=== PATIENT | male | born 1975 | race Caucasian/White ===

== ENCOUNTER 2018-07-21 05:50 | Day surgery (SDC) | payer OTHER ==
[2018-07-20 11:19] LABS: HEMATOCRIT 45.2 % (42.0-54.0); HEMOGLOBIN 16.1 g/dL (13.5-17.5); MCH 31.9 pg (26.0-34.0); MCHC 35.6 g/dL (31.0-37.0); MCV 89.5 fL (80.0-100.0); MEAN PLATELET VOLUME 10.8 fL (7.4-10.4); RBC 5.05 10x6/uL (4.20-6.10); RDW 12.7 % (11.5-14.5); WBC 6.8 10x3/uL (4.8-10.8)
[~2018-07-21] VITALS: Ht 175.3 cm; Wt 80.3 kg
[~2018-07-21 05:50] MED LIST: LISINOPRIL5 MG PO
[2018-07-21 06:42] VITALS: BP 121/80; Ht 175.3 cm; Wt 80.3 kg
[2018-07-21] MEDS ORDERED: HYDROCODON-ACE1 EAC7 PO (09:31)
[2018-07-21] MEDS ORDERED: FLOMAX0.4 MG PO (09:31)
[2018-07-21] MEDS ORDERED: FUROSEMIDE20 MG PO (09:31)
--- NOTE | 2018-07-21 10:28 | NUR ---
1020-RECD FROM PACU. ALERT. IV PATENT. STERISTRIPS TO ABD DRY AND INTACT. DENIES PAIN. FULL LIQUIDS SERVED.
--- NOTE | 2018-07-21 11:20 | NUR ---
TOLERATING FL TRAY. DENIES NEEDS. FAMILY AT BEDSIDE. RELATES STARTING TO FEEL THE URGE TO URINATE STATING "IT'S GETTING CLOSE."
--- NOTE | 2018-07-21 12:30 | NUR ---
TOLERATED DIET. STILL HAS NOT VOIDED, IV FLD INFUSING VIA LEFT PIV. FAMILY AT BEDSIDE.
--- NOTE | 2018-07-21 13:35 | NUR ---
AMBULATED TO BATHROOM AND VOIDED WITHOUT DIFFICULTY. IV DC'D WITH CATHETER INTACT, WRITTEN AND VERBAL DC INST. GIVEN TO PT. VERBALIZED UNDERSTANDING.
--- NOTE | 2018-07-21 13:50 | NUR ---
DC'D HOME WITH FAMILY VIA PRIVATE VEHICLE, TAKEN TO VEHICLE VIA , STABLE AT TIME OF DC.
== END 2018-07-21 13:50 | disposition home or self-care (01) ==
LOC: D.OPS 05:50 → D.PAN 08:00 → D.OPS 08:15
PROVIDERS: Anesthesiology; ATTEND Surgery
DX: K40.20 Bilateral inguinal hernia, without obstruction or gangrene, not specified as recurrent (principal); Z01.812 Encounter for preprocedural laboratory examination